=== PATIENT | male | born 1930 | race African-American/Black ===

== ENCOUNTER → 2017-06-15 | Outpatient (CLI) | payer MEDICARE ==
--- NOTE | 2017-06-15 14:34 | RADIOLOGY REPORT (SQ) ---
EXAM DESCRIPTION: CTA HEAD COMPLETED DATE/TIME: 06/15/2017 2:06 pm REASON FOR STUDY: HEADACHE (R51) R51 HEADACHE COMPARISON: None. TECHNIQUE: Post IV contrast scanning, thin section axial imaging through the brain to evaluate the a rterial structures. Source and MIP images are saved and reviewed on PACS. Advanced 3D imaging as volume-rendering, MIPs, SSD performed? yes All CT scanners at this facility use dose modulation, iterative reconstruction, and/or weight based d osing when appropriate to reduce radiation dose to as low as reasonably achievable (ALARA). [facility]: Dose Right [facility]: CareDose [facility]: Dose Right [facility]: Teradose 4D [facility]: 1Mind CONTRAST TYPE AND DOSE: Not recorded by the technologist. RENAL FUNCTION: Creatinine 0.9 LIMITATIONS: None. FINDINGS: [place]: The anterior, middle, posterior cerebral arteries are all patent. No ev idence of aneurysm or focal stenosis. POSTERIOR CIRCULATION: The distal vertebral arteries are patent as is the basilar artery. No aneurysm . BRAIN: No gross enhancing lesions as visualized. The superior cerebral hemispheres are not included in the field of view. BONES: Intact as visualized. SINUSES: No fluid or mucosal thickening. OTHER: At least 50% stenosis of the proximal internal carotid arteries bilaterally. Quantification is limited due to the degree of calcification. IMPRESSION: 1. No evidence of aneurysm or occlusion in the [place]. 2. 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 TECHNICAL DOCUMENTATION: JOB ID: [id number] Quality ID # [id number]: Final reports with documentation of one or more dose reduction techniques (e.g., Au tomated exposure control, adjustment of the mA and/or kV according to patient size, use of iterative reconstruction technique) 2010 [employer]- All Rights Reserved
== END ==
LOC: RAD 12:44
PROVIDERS: ATTEND Internal Medicine
DX: R51 Headache (principal)
CPT/HCPCS: 70496; 82565

== ENCOUNTER → 2017-11-24 | Outpatient (CLI) | payer MEDICARE ==
--- NOTE | 2017-11-24 14:09 | RADIOLOGY REPORT (SQ) ---
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 Images stored on PACS. Orbital protocol was used, including thin section axial and coronal fat-sat T2, precontrast T1, fat-s at postcontrast T1 weighted images through the orbits, sella, cavernous sinuses CONTRAST TYPE AND DOSE: 15 mL Multihance. RENAL FUNCTION: GFR > 60. LIMITATIONS: None. FINDINGS: ANATOMY: No developmental anomalies. Normal vascular flow voids. Pituitary fossa normal. 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 This is unchanged from 10/19/2014. There is moderate small vessel ischemic change in the bifrontal and biparietal hemispheric white tammy er. This is chronic and unchanged from 2015. No MR evidence of acute cerebral hemisphere ischemic change, acute intracranial hemorrhage, mass effe ct, or midline shift. POSTERIOR FOSSA: Chronic infarcts are present in the lower half left cerebellar hemisphere, in the mi d yanet, unchanged from 2015. No posterior fossa acute ischemic change, hemorrhage, mass effect or sh ift. DIFFUSION IMAGING: Negative for acute or subacute infarction. ORBITS: Detailed orbital imaging demonstrates that the globes, optic nerves, intra and extraconal orb ital fat, extraocular muscles are unremarkable. Old cataract surgery. Cavernous sinuses, suprasella r cistern unremarkable. PARANASAL SINUSES: Mucous membrane thickening in the floor right maxillary sinus. OTHER: No other significant finding. IMPRESSION: No acute findings. 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 Small vessel ischemic change in the cerebral hemispheres. 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 EVIDENCE OF ACUTE STROKE: NO. TECHNICAL DOCUMENTATION: JOB ID: [id number] [employer]- All Rights Reserved Reading location - IP/workstation name: [email or web address]
== END ==
LOC: RAD 10:01
PROVIDERS: ATTEND Ophthalmology
DX: H53.462 Homonymous bilateral field defects, left side (principal)
CPT/HCPCS: 82565; 70553; A9577